=== PATIENT | male | born 1960 | race Caucasian/White ===

== ENCOUNTER 2021-04-29 16:17 | Inpatient (IN) | payer BC, SELFPAY ==
[~2021-04-29 16:17] MED LIST: Iopamidol-370 76% 500 ML 1 ML ONE
[2021-04-29] MEDS ORDERED: Magnesium 2 GM/50 ML BAG (IN WATER) ONE (16:53)
[2021-04-29] MEDS ORDERED: methylPREDNISolone Sod Succ/PF 125 MG/2 ML VIAL ONE (16:53)
[2021-04-29] MEDS ORDERED: Cefepime 2 GM VIAL ONE (17:05)
[2021-04-29 17:08] LABS: #Basophils 0.1 thou/uL (0.0-0.2); #Eosinphils 0.1 thou/uL (0.0-0.7); #Lymphocytes 2.7 thou/uL (1.20-3.40); #Monocytes 2.1 thou/uL (0.11-0.59); #Neutrophils 10.6 thou/uL (1.40-6.50); %Basophils 0.4 % (0.0-1.0); %Eosinophils 0.3 % (0.0-10.0); %Lymphocytes 17.4 % (21.0-51.0); %Monocytes 13.8 % (0.0-10.0); %Neutrophils 68.1 % (42.0-75.0); Hemoglobin 16.6 g/dL (14.0-18.0); Mean Corpuscular HGB CONC 33.4 g/dL (32.0-36.0); Mean Corpuscular Hemoglobin 30.8 pg (27.0-31.0); Mean Corpuscular Volume 92.4 fL (78.0-98.0); Mean Platelet Volume 7.8 fL (7.4-10.4); Platelet Count 263 thou/uL (130-400); RBC Distribution Width 13.2 % (11.5-14.5); Red Blood Cell (RBC) Count 5.38 mill/uL (4.70-6.10); White Blood Cell (WBC) Count 15.5 thou/uL (4.8-10.8)
[2021-04-29] MEDS ORDERED: Albuterol 200 PUFF (6.7GM INHALER) ONE (17:24)
[2021-04-29 17:34] LABS: ALT (SGPT) 27 U/L (8-55); AST (SGOT) 15 U/L (5-34); Albumin 4.4 g/dL (3.5-5.0); Alkaline Phosphatase 89 U/L (40-110); Anion Gap 18 mmol/L (10-20); BUN (Urea Nitrogen) 10 mg/dL (8.4-25.7); Bilirubin, Total 1.2 mg/dL (0.2-1.2); Calc. Creatinine Clearance 0 mL/min (70-130); Calcium 9.7 mg/dL (7.8-10.44); Carbon Dioxide 22 mmol/L (22-29); Chloride 95 mmol/L (98-107); Globulin 3.6 g/dL (2.4-3.5); Glucose 126 mg/dL (70-105); Lipase 20 U/L (8-78); Magnesium 1.7 mg/dL (1.6-2.6); Sodium 131 mmol/L (136-145)
[2021-04-29] MEDS ORDERED: VANCOMYCIN 2 GRAM/400 ML BAG 2 GM in Premix Bag 1 BAG IVPB SCH (17:45)
[2021-04-29] MEDS ORDERED: Aspirin Chewable 81 MG TAB ONE (18:04)
[2021-04-29 18:17] LABS: SARS-CoV-2 NAA Rapid Test Not Detected (NotDetected)
[2021-04-29 20:35] LABS: Troponin I 0.019 ng/mL (< 0.028)
[2021-04-29] MEDS ORDERED: Ondansetron ODT 4 MG TAB PO PRN (20:53)
[2021-04-29] MEDS ORDERED: Ondansetron PF 4 MG/2 ML Vial IVP PRN ×2 (20:53→21:30)
[2021-04-29 21:05] LABS: Bilirubin Negative (Negative); Blood, Urine Negative (Negative); Clarity Clear (Clear); Glucose, Urine (Dipstick) Normal (Negative); Ketone, Urine Negative (Negative); Leukocyte Negative Leu/uL (Negative); Nitrite Negative (Negative); Protein, Urine (Dipstick) Negative (Neg-Trace); Specific Gravity, Urine 1.023 (1.002-1.036); Urobilinogen Normal mg/dL (Less than 2); pH, Urine 5.5 (5.0-9.0)
[2021-04-29] MEDS ORDERED: Acetaminophen 325 MG TAB PO PRN (21:30)
[2021-04-29] MEDS ORDERED: Ondansetron ODT 4 MG TAB SL PRN (21:30)
[2021-04-29 21:43] VITALS: BMI 31.5
[2021-04-29 23:18] LABS: Troponin I 0.021 ng/mL (< 0.028)
[2021-04-30 04:52] LABS: #Lymphocytes 1.5 thou/uL (1.20-3.40); #Monocytes 0.3 thou/uL (0.11-0.59); #Neutrophils 9.7 thou/uL (1.40-6.50); %Eosinophils 0.1 % (0.0-10.0); %Lymphocytes 12.8 % (21.0-51.0); %Monocytes 2.2 % (0.0-10.0); %Neutrophils 84.9 % (42.0-75.0); Hemoglobin 15.9 g/dL (14.0-18.0); Mean Corpuscular HGB CONC 34.3 g/dL (32.0-36.0); Mean Corpuscular Hemoglobin 31.9 pg (27.0-31.0); Mean Platelet Volume 7.8 fL (7.4-10.4); Platelet Count 221 thou/uL (130-400); RBC Distribution Width 13.3 % (11.5-14.5); Red Blood Cell (RBC) Count 4.99 mill/uL (4.70-6.10); White Blood Cell (WBC) Count 11.4 thou/uL (4.8-10.8)
[2021-04-30 05:14] LABS: Anion Gap 13 mmol/L (10-20); BUN (Urea Nitrogen) 14 mg/dL (8.4-25.7); Calc. Creatinine Clearance 106 mL/min (70-130); Calcium 9.1 mg/dL (7.8-10.44); Carbon Dioxide 23 mmol/L (22-29); Chloride 99 mmol/L (98-107); Glucose 256 mg/dL (70-105); Potassium 4.1 mmol/L (3.5-5.1); Sodium 131 mmol/L (136-145)
[2021-04-30] MEDS ORDERED: methylPREDNISolone Sod Succ 40 MG VIAL IVP SCH (09:00)
[2021-04-30] MEDS ORDERED: Lisinopril/Hydrochlorothiazide 10 mg/12.5 mg Tablet PO SCH (14:00)
[2021-04-30] MEDS: predniSONE 20 MG TAB PO SCH (16:31)
[2021-04-30] MEDS ORDERED: Atorvastatin Calcium 10 MG TAB PO SCH (21:00)
[2021-04-30] MEDS ORDERED: Prevnar 13-Val Conj/PF 0.5 ML SYRINGE IM ONE (21:00)
[2021-04-30] MEDS ORDERED: Nicotine 21 MG PATCH TD SCH (21:30)
[2021-04-30] MEDS: Famotidine 20 MG TAB PO SCH (21:30)
[2021-04-30] MEDS: guaiFENesin ER 600 MG TAB PO SCH (21:30)
[2021-05-01] MEDS ORDERED: Lisinopril/Hydrochlorothiazide 10 mg/12.5 mg Tablet PO SCH (09:00)
[2021-05-01] MEDS: Famotidine 20 MG TAB PO SCH (09:26)
[2021-05-01] MEDS: predniSONE 20 MG TAB PO SCH (09:26)
[2021-05-01] MEDS: guaiFENesin ER 600 MG TAB PO SCH (09:26)
[2021-05-01 14:55] VITALS: BP 147/78; TEMP 97.4
== END 2021-05-01 15:05 | disposition home or self-care (01) | DRG 871 ==
LOC: ERS 16:17 → 2NO 18:21
PROVIDERS: ADMIT Internal Medicine; ATTEND Internal Medicine
DX: A41.9 Sepsis, unspecified organism (principal); J18.9 Pneumonia, unspecified organism; E87.2 Acidosis; E87.1 Hypo-osmolality and hyponatremia; Z20.822 Contact with and (suspected) exposure to COVID-19; F17.210 Nicotine dependence, cigarettes, uncomplicated; J43.9 Emphysema, unspecified; E66.9 Obesity, unspecified; I10 Essential (primary) hypertension; E87.5 Hyperkalemia; R73.9 Hyperglycemia, unspecified; T38.0X5A Adverse effect of glucocorticoids and synthetic analogues, initial encounter; Z88.0 Allergy status to penicillin; Z79.899 Other long term (current) drug therapy; Z68.30 Body mass index [BMI] 30.0-30.9, adult
CPT/HCPCS: 0240U; 36415; 71045; 71275; 80048; 80053; 81003; 83036; 83605; 83690; 83735; 83880; 84484; 85025; 87040; 87149; 90471; 90670; 93005; 94640; 94664; 94760; 96365; 96366; 96367; 96368; 96375; G0009; J0692; J1956; J2920; J2930; J3370; J3475; J7030; J7512; J7620; Q9967

== ENCOUNTER 2022-05-16 11:33 | Outpatient (CLI) | payer BC | END 2022-05-16 11:34 | disposition home or self-care (01) | LOC: BICRAD 11:33 | PROVIDERS: ATTEND Family Medicine Sports Medicine | DX: R06.02 Shortness of breath (principal) | CPT/HCPCS: 71046 ==

== ENCOUNTER 2023-12-27 11:26 | Inpatient (IN) | payer BC, SELFPAY ==
[~2023-12-27 11:26] MED LIST changes: -Iopamidol-370 76% 500 ML 1 ML ONE; +Iopamidol-370 76% 500 ML MDV (1 ML CHARGE) ONE
[2023-12-27 12:13] LABS: #Basophils 0.1 thou/uL (0.0-0.2); #Monocytes 1.3 thou/uL (0.11-0.59); #Neutrophils 18.5 thou/uL (1.40-6.50); %Basophils 0.3 % (0.0-1.0); %Eosinophils 0.2 % (0.0-10.0); %Lymphocytes 11.2 % (21.0-51.0); %Monocytes 5.8 % (0.0-10.0); %Neutrophils 81.9 % (42.0-75.0); Hematocrit 47.6 % (42.0-52.0); Hemoglobin 15.7 g/dL (14.0-18.0); Mean Corpuscular Hemoglobin 29.9 pg (27.0-31.0); Mean Corpuscular Volume 90.7 fl (78.0-98.0); Mean Platelet Volume 10.6 fL (7.4-10.4); Platelet Count 198 10x3/uL (130-400); RBC Distribution Width 14.6 % (11.5-14.5); Red Blood Cell (RBC) Count 5.25 mill/uL (4.70-6.10); White Blood Cell (WBC) Count 22.5 10x3/uL (4.8-10.8)
[2023-12-27] MEDS ORDERED: Aspirin Chewable 81 MG TAB ONE (12:17)
[2023-12-27] MEDS ORDERED: Magnesium 2 GM/50 ML BAG (IN WATER) ONE (12:57)
[2023-12-27 13:16] LABS: Critical Call Chem Troponin I NUR.JH15@1314
[2023-12-27 14:08] LABS: Influenza A by NAA Not Detected (NotDetected); Influenza B by NAA Not Detected (NotDetected); SARS-CoV-2 NAA Rapid Test Not Detected (NotDetected)
[2023-12-27] MEDS ORDERED: Furosemide 40 MG (4 mL) VIAL ONE (14:10)
[2023-12-27 14:35] LABS: ALT (SGPT) 594 U/L (8-55); AST (SGOT) 484 U/L (5-34); Albumin 4.4 g/dL (3.4-4.8); Alkaline Phosphatase 69 U/L (40-110); Anion Gap 18 mmol/L (10-20); BUN (Urea Nitrogen) 31 mg/dL (8.4-25.7); Bilirubin, Total 2.4 mg/dL (0.2-1.2); Calc. Creatinine Clearance 0 mL/min (70-130); Calcium 9.3 mg/dL (7.8-10.44); Carbon Dioxide 21 mmol/L (23-31); Chloride 97 mmol/L (98-107); Estimated GFR 45; Globulin 2.6 g/dL (2.4-3.5); Glucose 159 mg/dL (80-115); Magnesium 2.2 mg/dL (1.6-2.6); Potassium 4.6 mmol/L (3.5-5.1); Sodium 131 mmol/L (136-145)
[2023-12-27] MEDS ORDERED: Enoxaparin 100 MG (1 mL) SYRINGE ONE (15:15)
[2023-12-27 15:37] LABS: Critical Call Chem Troponin I RESULT DECREASING; Troponin I 0.457 ng/mL (< 0.028)
[2023-12-27 16:25] VITALS: BMI 34.2
[2023-12-27] MEDS ORDERED: Heparin 25,000 units/D5W 500 ML IVPB SCH (19:30)
[2023-12-27] MEDS ORDERED: Heparin 10,000 UNITS/ 10 ML VIAL SLOW IVP SCH (19:30)
[2023-12-27] MEDS ORDERED: Metoprolol Tartrate 25 MG TAB ONE (20:50)
[2023-12-27] MEDS ORDERED: Acetaminophen 325 MG TAB ONE (20:50)
[2023-12-27] MEDS: Acetaminophen 325 MG TAB PO PRN (20:55)
[2023-12-27] MEDS: Metoprolol Tartrate 25 MG TAB PO SCH (20:57)
[2023-12-27] MEDS ORDERED: Ondansetron ODT 4 MG TAB PO PRN (22:13)
[2023-12-27] MEDS ORDERED: Atorvastatin Calcium 40 MG TAB ONE (22:59)
[2023-12-27] MEDS: Atorvastatin Calcium 40 MG TAB PO SCH (23:08)
[2023-12-27 23:27] LABS: Amphetamine Detected (NotDetected); Barbiturates Screen Not Detected (NotDetected); Benzodiazepine Screen Not Detected (NotDetected); Cocaine Metabolite Screen Not Detected (NotDetected); Methadone Not Detected (NotDetected); Methamphetamine Detected (NotDetected); Opiate Screen Not Detected (NotDetected); Oxycodone Screen Not Detected (NotDetected); Phencyclidine (PCP) Not Detected (NotDetected); THC/Cannabinoid Screen Detected (NotDetected); Tricyclic Screen Not Detected (NotDetected)
[2023-12-28 00:01] LABS: Hemoglobin 13.9 g/dL (14.0-18.0); Platelet Count 214 10x3/uL (130-400)
[2023-12-28 00:18] LABS: ALT (SGPT) 569 U/L (8-55); AST (SGOT) 360 U/L (5-34); Albumin 3.9 g/dL (3.4-4.8); Alkaline Phosphatase 58 U/L (40-110); Anion Gap 14 mmol/L (10-20); BUN (Urea Nitrogen) 26 mg/dL (8.4-25.7); Bilirubin, Total 1.7 mg/dL (0.2-1.2); Calc. Creatinine Clearance 104 mL/min (70-130); Calcium 8.7 mg/dL (7.8-10.44); Carbon Dioxide 25 mmol/L (23-31); Chloride 96 mmol/L (98-107); Estimated GFR 76; Globulin 2.6 g/dL (2.4-3.5); Glucose 118 mg/dL (80-115); Potassium 4.1 mmol/L (3.5-5.1); Protein, Total 6.5 g/dL (5.8-8.1); Sodium 131 mmol/L (136-145)
[2023-12-28 00:38] LABS: HBCM Index 0.07 S/CO (0-0.79); Hep A IgM AB Non-Reactive (NonReactive); Hep A IgM S/CO 0.34 S/CO (0-0.79); Hep B Surf Ag Non-Reactive S/CO (NonReactive); Hep C IgG Ab Non-Reactive S/CO (NonReactive); Hep C Index 0.08 S/CO (0-0.79); Hepatitis B Core IgM Abs Non-Reactive S/CO (NonReactive)
[2023-12-28 00:39] LABS: HIV (1/2) Antibody/Antigen Non-Reactive (NonReactive); HIV 1/2 INDEX 0.22 S/CO (<1.00)
[2023-12-28] MEDS: Lactated Ringer's 1,000 ML IV SCH (01:23)
[2023-12-28 02:00] LABS: Critical Call Chem Troponin I NUR.SH13@0159; Troponin I 0.517 ng/mL (< 0.028)
[2023-12-28] MEDS ORDERED: Heparin 25,000 units/D5W 500 ML ONE (02:12)
[2023-12-28] MEDS: Heparin 10,000 UNITS/ 10 ML VIAL SLOW IVP SCH (02:37)
[2023-12-28] MEDS: Heparin 25,000 units/D5W 500 ML IVPB SCH (02:37)
[2023-12-28] MEDS ORDERED: Nitroglycerin 0.4 MG TAB (25 Tab Bottle) SL PRN (02:40)
[2023-12-28 03:59] LABS: #Eosinphils 0.1 thou/uL (0.0-0.7); #Neutrophils 10.1 thou/uL (1.40-6.50); %Basophils 0.3 % (0.0-1.0); %Eosinophils 0.3 % (0.0-10.0); %Monocytes 13.5 % (0.0-10.0); %Neutrophils 68.6 % (42.0-75.0); Hematocrit 47.3 % (42.0-52.0); Hemoglobin 15.6 g/dL (14.0-18.0); Mean Corpuscular Hemoglobin 29.6 pg (27.0-31.0); Mean Corpuscular Volume 89.8 fl (78.0-98.0); Mean Platelet Volume 10.4 fL (7.4-10.4); Platelet Count 208 10x3/uL (130-400); RBC Distribution Width 14.5 % (11.5-14.5); Red Blood Cell (RBC) Count 5.27 mill/uL (4.70-6.10); White Blood Cell (WBC) Count 14.7 10x3/uL (4.8-10.8)
[2023-12-28 04:09] LABS: Hemoglobin A1c 6.2 % (4.0-6.0)
[2023-12-28] MEDS ORDERED: Acetaminophen 500 MG TAB ONE (04:12)
[2023-12-28] MEDS ORDERED: Famotidine 20 MG TAB ONE (04:12)
[2023-12-28] MEDS: Acetaminophen 500 MG TAB PO SCH (04:16)
[2023-12-28] MEDS: Famotidine 20 MG TAB PO SCH (04:17)
[2023-12-28 04:19] LABS: ALT (SGPT) 660 U/L (8-55); AST (SGOT) 416 U/L (5-34); Albumin 4.2 g/dL (3.4-4.8); Alkaline Phosphatase 64 U/L (40-110); Anion Gap 20 mmol/L (10-20); BUN (Urea Nitrogen) 24 mg/dL (8.4-25.7); Bilirubin, Total 2.1 mg/dL (0.2-1.2); Calc. Creatinine Clearance 115 mL/min (70-130); Calcium 8.8 mg/dL (7.8-10.44); Carbon Dioxide 22 mmol/L (23-31); Cardiac Risk 3.2 (Less than 4.5); Chloride 95 mmol/L (98-107); Cholesterol 133 mg/dl (< 200 Desired); Estimated GFR 86; Glucose 100 mg/dL (80-115); HDL Cholesterol 41 mg/dL (>60 Neg Risk); LDL Cholesterol, Calculated 62 mg/dL; Magnesium 2.3 mg/dL (1.6-2.6); Potassium 4.8 mmol/L (3.5-5.1); Protein, Total 7.2 g/dL (5.8-8.1); Sodium 132 mmol/L (136-145); Triglycerides 148 mg/dL (Less than 150)
[2023-12-28 06:16] LABS: Critical Call Chem Troponin I RESULT DECREASING; Troponin I 0.515 ng/mL (< 0.028)
[2023-12-28] MEDS ORDERED: Lactated Ringer's 1,000 ML IV SCH (07:00)
[2023-12-28] MEDS ORDERED: Lisinopril 10 MG TAB ONE (08:16)
[2023-12-28] MEDS ORDERED: Clopidogrel Bisulfate 75 MG TAB ONE (08:16)
[2023-12-28] MEDS ORDERED: Aspirin Chewable 81 MG TAB ONE (08:17)
[2023-12-28] MEDS ORDERED: Metoprolol Tartrate 25 MG TAB ONE (08:33)
[2023-12-28] MEDS ORDERED: Hydrochlorothiazide 25 MG TAB PO SCH (09:00)
[2023-12-28] MEDS ORDERED: Lisinopril 10 MG TAB PO SCH (09:00)
[2023-12-28] MEDS ORDERED: Atorvastatin Calcium 10 MG TAB PO SCH (09:00)
[2023-12-28] MEDS: Hydrochlorothiazide 25 MG TAB PO SCH (10:40)
[2023-12-28] MEDS: Lisinopril 10 MG TAB PO SCH (10:41)
[2023-12-28] MEDS: Clopidogrel Bisulfate 75 MG TAB PO SCH (10:41)
[2023-12-28] MEDS: Aspirin 81 mg Enteric Coated Tablet PO SCH (10:41)
[2023-12-28] MEDS: Docusate 100 MG CAP PO SCH (10:41)
[2023-12-28 11:54] LABS: Syphilis Antibody Nonreactive (Nonreactive); Syphilis Antibody Index 0.04 S/CO (<1.00 Non-Reactive)
[2023-12-28] MEDS ORDERED: Ipratropium/Albuterol 3 ML NEB NEB PRN (13:56)
[2023-12-28] MEDS: Enoxaparin 120 MG/0.8 ML SYRINGE SC SCH (15:55)
[2023-12-28] MEDS: Atorvastatin Calcium 40 MG TAB PO SCH (20:41)
[2023-12-28] MEDS ORDERED: Enoxaparin 120 MG/0.8 ML SYRINGE SC SCH (21:00)
[2023-12-28] MEDS: Sodium Chloride 0.9% 500 ML IV SCH (22:05)
[2023-12-29] MEDS: Guaifenesin DM 100-10/5 ML UDCUP PO PRN (02:41)
[2023-12-29] MEDS: Enoxaparin 120 MG/0.8 ML SYRINGE SC SCH (04:04)
[2023-12-29 06:06] LABS: #Eosinphils 0.1 thou/uL (0.0-0.7); #Monocytes 1.1 thou/uL (0.11-0.59); #Neutrophils 5.1 thou/uL (1.40-6.50); %Basophils 0.2 % (0.0-1.0); %Eosinophils 1.5 % (0.0-10.0); %Lymphocytes 33.2 % (21.0-51.0); %Monocytes 11.4 % (0.0-10.0); %Neutrophils 53.4 % (42.0-75.0); Hematocrit 43.3 % (42.0-52.0); Hemoglobin 14.2 g/dL (14.0-18.0); Mean Corpuscular HGB CONC 32.8 g/dL (32.0-36.0); Mean Corpuscular Hemoglobin 30.2 pg (27.0-31.0); Mean Corpuscular Volume 92.1 fl (78.0-98.0); Mean Platelet Volume 10.8 fL (7.4-10.4); Platelet Count 210 10x3/uL (130-400); RBC Distribution Width 14.2 % (11.5-14.5); White Blood Cell (WBC) Count 9.5 10x3/uL (4.8-10.8)
[2023-12-29 06:38] LABS: ALT (SGPT) 445 U/L (8-55); AST (SGOT) 184 U/L (5-34); Albumin 3.7 g/dL (3.4-4.8); Alkaline Phosphatase 72 U/L (40-110); Anion Gap 13 mmol/L (10-20); BUN (Urea Nitrogen) 20 mg/dL (8.4-25.7); Bilirubin, Total 1.2 mg/dL (0.2-1.2); Calc. Creatinine Clearance 133 mL/min (70-130); Carbon Dioxide 27 mmol/L (23-31); Chloride 98 mmol/L (98-107); Estimated GFR 98; Globulin 2.6 g/dL (2.4-3.5); Glucose 112 mg/dL (80-115); Potassium 3.7 mmol/L (3.5-5.1); Protein, Total 6.3 g/dL (5.8-8.1); Sodium 134 mmol/L (136-145)
[2023-12-29 07:14] LABS: Critical Call Chem Troponin I REJAB.HL@0713; Troponin I 0.397 ng/mL (< 0.028)
[2023-12-29] MEDS ORDERED: Hydrochlorothiazide 25 MG TAB PO SCH (09:00)
[2023-12-29] MEDS: Magnesium Sulfate 3 GM in Sodium Chloride 0.9% 100 ML IVPB SCH (09:06)
[2023-12-29] MEDS: Potassium Chloride 20 MEQ TAB PO SCH (09:07)
[2023-12-29] MEDS: FLU VACC QS2023-24(6MOS UP)/PF 60 MCG/0.5 ML SYRINGE IM ONE (09:13)
[2023-12-29] MEDS ORDERED: Enoxaparin 100 MG (1 mL) SYRINGE SC SCH ×2 (16:00→20:00)
[2023-12-29] MEDS: Apixaban 5 MG TAB PO SCH ×3 (16:38→16:50)
[2023-12-29] MEDS ORDERED: Apixaban 5 MG TAB PO SCH (21:00)
[2023-12-30 04:59] LABS: #Eosinphils 0.3 thou/uL (0.0-0.7); #Neutrophils 5.2 thou/uL (1.40-6.50); %Basophils 0.3 % (0.0-1.0); %Eosinophils 3.2 % (0.0-10.0); %Lymphocytes 31.6 % (21.0-51.0); %Monocytes 10.2 % (0.0-10.0); %Neutrophils 54.4 % (42.0-75.0); Hematocrit 43.5 % (42.0-52.0); Hemoglobin 14.3 g/dL (14.0-18.0); Mean Corpuscular HGB CONC 32.9 g/dL (32.0-36.0); Mean Corpuscular Hemoglobin 29.6 pg (27.0-31.0); Mean Corpuscular Volume 90.1 fl (78.0-98.0); Mean Platelet Volume 10.5 fL (7.4-10.4); Platelet Count 251 10x3/uL (130-400); RBC Distribution Width 13.9 % (11.5-14.5); Red Blood Cell (RBC) Count 4.83 mill/uL (4.70-6.10); White Blood Cell (WBC) Count 9.6 10x3/uL (4.8-10.8)
[2023-12-30 05:28] LABS: ALT (SGPT) 311 U/L (8-55); AST (SGOT) 80 U/L (5-34); Albumin 3.5 g/dL (3.4-4.8); Alkaline Phosphatase 76 U/L (40-110); Anion Gap 16 mmol/L (10-20); BUN (Urea Nitrogen) 16 mg/dL (8.4-25.7); Bilirubin, Total 0.6 mg/dL (0.2-1.2); Calc. Creatinine Clearance 141 mL/min (70-130); Calcium 8.8 mg/dL (7.8-10.44); Carbon Dioxide 23 mmol/L (23-31); Chloride 102 mmol/L (98-107); Estimated GFR 100; Globulin 2.9 g/dL (2.4-3.5); Glucose 120 mg/dL (80-115); Magnesium 3.7 mg/dL (1.6-2.6); Potassium 4.3 mmol/L (3.5-5.1); Protein, Total 6.4 g/dL (5.8-8.1); Sodium 137 mmol/L (136-145)
[2023-12-30] MEDS: Apixaban 5 MG TAB PO SCH (09:21)
[2023-12-30 12:37] VITALS: BP 134/66; TEMP 98.4
[2024-01-03] MEDS ORDERED: Apixaban 5 MG TAB PO SCH ×2 (16:00→21:00)
== END 2023-12-30 15:44 | disposition home or self-care (01) | DRG 917 ==
LOC: ERS 11:26 → ERHOLD 15:27 → IMCU/EMU 12-28 12:00 → 2NO 12-29 20:23
PROVIDERS: ADMIT Student in an Organized Health Care Education/Training Program; ATTEND Student in an Organized Health Care Education/Training Program
PROC: 5A2204Z Restoration of Cardiac Rhythm, Single (ICD-10-PCS; principal; 2023-12-27)
DX: T43.651A Poisoning by methamphetamines accidental (unintentional), initial encounter (principal); I21.4 Non-ST elevation (NSTEMI) myocardial infarction; I26.99 Other pulmonary embolism without acute cor pulmonale; I47.20 Ventricular tachycardia, unspecified; N17.9 Acute kidney failure, unspecified; E78.5 Hyperlipidemia, unspecified; I10 Essential (primary) hypertension; J44.9 Chronic obstructive pulmonary disease, unspecified; F15.10 Other stimulant abuse, uncomplicated; F17.210 Nicotine dependence, cigarettes, uncomplicated; Z71.6 Tobacco abuse counseling; Z79.899 Other long term (current) drug therapy; Z86.19 Personal history of other infectious and parasitic diseases
CPT/HCPCS: 36415; 71045; 71275; 76705; 80053; 80061; 80074; 80306; 83036; 83690; 83735; 83880; 84443; 84484; 85025; 85730; 86780; 87389; 93005; 93010; 93306; 93970; 96365; 96375; J1644; J1650; J1940; J3475; J3490; J7030; J7120; Q9967

== ENCOUNTER 2024-05-02 13:02 | Inpatient (IN) | payer SELFPAY ==
[2024-05-02] MEDS ORDERED: methylPREDNISolone Sod Succ/PF 125 MG/2 ML VIAL ONE (13:18)
[2024-05-02 13:34] LABS: #Basophils 0.06 10x3/uL (0.0-0.2); %Basophils 0.5 % (0.0-1.0); %Eosinophils 2.5 % (0.0-10.0); %Lymphocytes 36.2 % (21.0-51.0); %Neutrophils 49.6 % (42.0-75.0); Hematocrit 45.7 % (42.0-52.0); Hemoglobin 14.8 g/dL (14.0-18.0); Mean Corpuscular HGB CONC 32.4 g/dL (32.0-36.0); Mean Corpuscular Volume 89.4 fL (78.0-98.0); Mean Platelet Volume 9.9 fL (7.4-10.4); Platelet Count 208 10x3/uL (130-400); RBC Distribution Width 15.9 % (11.5-14.5); Red Blood Cell (RBC) Count 5.11 mill/uL (4.70-6.10)
[2024-05-02] MEDS ORDERED: Magnesium 2 GM/50 ML BAG (IN WATER) ONE (13:34)
[2024-05-02 13:49] LABS: ALT (SGPT) 16 U/L (8-55); AST (SGOT) 20 U/L (5-34); Albumin 3.9 g/dL (3.4-4.8); Alkaline Phosphatase 91 U/L (40-110); Anion Gap 15 mmol/L (10-20); BUN (Urea Nitrogen) 12 mg/dL (8.4-25.7); Calc. Creatinine Clearance 0 mL/min (70-130); Calcium 9.3 mg/dL (7.8-10.44); Carbon Dioxide 26 mmol/L (23-31); Chloride 102 mmol/L (98-107); Estimated GFR 81; Globulin 3.1 g/dL (2.4-3.5); Glucose 124 mg/dL (80-115); Potassium 4.9 mmol/L (3.5-5.1); Sodium 138 mmol/L (136-145)
[2024-05-02] MEDS ORDERED: Ipratropium/Albuterol 3 ML NEB ONE (13:49)
[2024-05-02 13:58] LABS: Troponin I 0.021 ng/mL (< 0.028)
[2024-05-02] MEDS ORDERED: Ipratropium/Albuterol 3 ML NEB NEB PRN (16:25)
[2024-05-02] MEDS: Nicotine 14 MG PATCH TD SCH (17:58)
[2024-05-02] MEDS: Acetaminophen 325 MG TAB PO SCH (17:58)
[2024-05-02] MEDS: methylPREDNISolone Sod Succ 40 MG VIAL IVP SCH (17:59)
[2024-05-02 18:12] VITALS: BMI 31.5
[2024-05-02] MEDS: Ipratropium/Albuterol 3 ML NEB NEB SCH (19:19)
[2024-05-02 19:45] LABS: Troponin I 0.012 ng/mL (< 0.028)
[2024-05-02] MEDS: Atorvastatin Calcium 20 MG TAB PO SCH (20:11)
[2024-05-02] MEDS: Famotidine 20 MG TAB PO SCH (20:12)
[2024-05-02 22:55] LABS: Troponin I Less than 0.010 ng/mL (< 0.028)
[2024-05-03 03:51] LABS: #Basophils Less than 0.03 10x3/uL (0.0-0.2); #Eosinphils Less than 0.03 10x3/uL (0.0-0.7); %Basophils 0.2 % (0.0-1.0); %Lymphocytes 10.1 % (21.0-51.0); %Monocytes 1.4 % (0.0-10.0); %Neutrophils 87.6 % (42.0-75.0); Hematocrit 45.6 % (42.0-52.0); Hemoglobin 14.5 g/dL (14.0-18.0); Mean Corpuscular HGB CONC 31.8 g/dL (32.0-36.0); Mean Corpuscular Hemoglobin 29.7 pg (27.0-31.0); Mean Corpuscular Volume 93.4 fL (78.0-98.0); Mean Platelet Volume 10.3 fL (7.4-10.4); Platelet Count 201 10x3/uL (130-400); RBC Distribution Width 15.9 % (11.5-14.5); Red Blood Cell (RBC) Count 4.88 mill/uL (4.70-6.10)
[2024-05-03 04:07] LABS: Anion Gap 16 mmol/L (10-20); BUN (Urea Nitrogen) 13 mg/dL (8.4-25.7); Calc. Creatinine Clearance 97 mL/min (70-130); Carbon Dioxide 23 mmol/L (23-31); Chloride 101 mmol/L (98-107); Estimated GFR 74; Glucose 264 mg/dL (80-115); Potassium 4.7 mmol/L (3.5-5.1); Sodium 135 mmol/L (136-145)
[2024-05-03] MEDS: Aspirin 81 mg Enteric Coated Tablet PO SCH (08:07)
[2024-05-03] MEDS: Losartan 25 MG TAB PO SCH (08:08)
[2024-05-03] MEDS: Furosemide 40 MG TAB PO SCH (08:08)
[2024-05-03] MEDS: Enoxaparin 40 MG (0.4 mL) SYRINGE SC SCH (08:08)
[2024-05-03 08:41] LABS: Amphetamine Not Detected (NotDetected); Barbiturates Screen Not Detected (NotDetected); Benzodiazepine Screen Not Detected (NotDetected); Cocaine Metabolite Screen Not Detected (NotDetected); Methadone Not Detected (NotDetected); Methamphetamine Not Detected (NotDetected); Opiate Screen Not Detected (NotDetected); Oxycodone Screen Not Detected (NotDetected); Phencyclidine (PCP) Not Detected (NotDetected); THC/Cannabinoid Screen Detected (NotDetected); Tricyclic Screen Not Detected (NotDetected)
[2024-05-03] MEDS ORDERED: Dextrose 5% in Water 1,000 ML IV PRN (15:46)
[2024-05-03] MEDS ORDERED: Glucagon 1 MG/ML KIT IM PRN (15:46)
[2024-05-03] MEDS ORDERED: Dextrose 50% Abboject 50 ML SYRINGE SLOW IVP PRN (15:46)
[2024-05-03] MEDS: Insulin Lispro 100 UNIT/ML 10 ML VIAL SC PRN (17:30)
[2024-05-03] MEDS: Apixaban 5 MG TAB PO SCH (20:27)
[2024-05-03] MEDS: Carvedilol 6.25 MG TAB PO SCH (20:27)
[2024-05-04 04:27] LABS: Hemoglobin A1c 7.2 % (4.0-6.0)
[2024-05-04 04:43] LABS: #Basophils Less than 0.03 10x3/uL (0.0-0.2); #Eosinphils Less than 0.03 10x3/uL (0.0-0.7); %Basophils 0.1 % (0.0-1.0); %Lymphocytes 6.3 % (21.0-51.0); %Monocytes 4.5 % (0.0-10.0); %Neutrophils 88.3 % (42.0-75.0); Hematocrit 44.1 % (42.0-52.0); Mean Corpuscular HGB CONC 31.7 g/dL (32.0-36.0); Mean Corpuscular Hemoglobin 29.8 pg (27.0-31.0); Mean Corpuscular Volume 93.8 fL (78.0-98.0); Mean Platelet Volume 10.2 fL (7.4-10.4); Platelet Count 201 10x3/uL (130-400); RBC Distribution Width 16.3 % (11.5-14.5)
[2024-05-04 04:45] LABS: Anion Gap 13 mmol/L (10-20); BUN (Urea Nitrogen) 17 mg/dL (8.4-25.7); Calc. Creatinine Clearance 98 mL/min (70-130); Calcium 9.6 mg/dL (7.8-10.44); Carbon Dioxide 27 mmol/L (23-31); Chloride 98 mmol/L (98-107); Estimated GFR 75; Glucose 283 mg/dL (80-115); Potassium 5.5 mmol/L (3.5-5.1); Sodium 132 mmol/L (136-145)
[2024-05-04] MEDS: Pantoprazole DR 40 MG TAB PO SCH (08:36)
[2024-05-04] MEDS: Amiodarone 200 MG TAB PO SCH (08:36)
[2024-05-04 14:51] LABS: Potassium 5.3 mmol/L (3.5-5.1)
[2024-05-04] MEDS: metFORMIN 500 MG TAB PO SCH (17:10)
[2024-05-04] MEDS: methylPREDNISolone Sod Succ 40 MG VIAL IVP SCH (21:25)
[2024-05-05 05:25] LABS: Anion Gap 11 mmol/L (10-20); BUN (Urea Nitrogen) 25 mg/dL (8.4-25.7); Calc. Creatinine Clearance 105 mL/min (70-130); Carbon Dioxide 26 mmol/L (23-31); Chloride 97 mmol/L (98-107); Estimated GFR 82; Glucose 325 mg/dL (80-115); Potassium 5.1 mmol/L (3.5-5.1); Sodium 129 mmol/L (136-145)
[2024-05-05 16:08] VITALS: BP 156/67; TEMP 97.8
== END 2024-05-05 16:19 | disposition home or self-care (01) | DRG 191 ==
LOC: ERS 13:02 → 2SW 15:39 → OBSVTOIN 05-03 15:38
PROVIDERS: ADMIT Internal Medicine; ATTEND Internal Medicine
DX: J44.1 Chronic obstructive pulmonary disease with (acute) exacerbation (principal); I48.19 Other persistent atrial fibrillation; I50.22 Chronic systolic (congestive) heart failure; R73.9 Hyperglycemia, unspecified; I25.10 Atherosclerotic heart disease of native coronary artery without angina pectoris; F15.10 Other stimulant abuse, uncomplicated; F17.210 Nicotine dependence, cigarettes, uncomplicated; I11.0 Hypertensive heart disease with heart failure; E78.5 Hyperlipidemia, unspecified; Z79.899 Other long term (current) drug therapy; Z88.0 Allergy status to penicillin; Z79.01 Long term (current) use of anticoagulants; Z79.82 Long term (current) use of aspirin; Z79.52 Long term (current) use of systemic steroids; Z86.711 Personal history of pulmonary embolism; Z95.5 Presence of coronary angioplasty implant and graft; Z71.6 Tobacco abuse counseling; Z71.51 Drug abuse counseling and surveillance of drug abuser; I25.2 Old myocardial infarction
CPT/HCPCS: 36415; 36416; 71045; 80048; 80053; 80306; 83036; 83880; 84484; 85025; 93005; 94640; 96365; 96375; J1650; J1815; J2920; J2930; J3475; J7620

== ENCOUNTER 2024-08-25 09:09 | Inpatient (IN) | payer BC, SELFPAY ==
[2024-08-25 09:57] LABS: %Basophils 0.6 % (0.0-1.0); %Eosinophils 0.5 % (0.0-10.0); %Lymphocytes 23.8 % (21.0-51.0); %Monocytes 11.1 % (0.0-10.0); %Neutrophils 63.5 % (42.0-75.0); Hematocrit 43.6 % (42.0-52.0); Hemoglobin 13.9 g/dL (14.0-18.0); Mean Corpuscular HGB CONC 31.9 g/dL (32.0-36.0); Mean Corpuscular Volume 94.2 fL (78.0-98.0); Mean Platelet Volume 9.1 fL (7.4-10.4); Platelet Count 282 10x3/uL (130-400); RBC Distribution Width 15.7 % (11.5-14.5); Red Blood Cell (RBC) Count 4.63 mill/uL (4.70-6.10)
[2024-08-25] MEDS ORDERED: Ipratropium/Albuterol 3 ML NEB ONE (10:08)
[2024-08-25 10:30] LABS: Acetaminophen 18 mcg/mL (Less than 10); Alcohol Less than 10.0 mg/dL (Less than 10); Salicylate Less than 8.0 mg/dL (Less than 8.0)
[2024-08-25 11:16] LABS: ALT (SGPT) 17 U/L (8-55); AST (SGOT) 16 U/L (5-34); Albumin 3.8 g/dL (3.4-4.8); Alkaline Phosphatase 70 U/L (40-110); Anion Gap 13 mmol/L (10-20); BUN (Urea Nitrogen) 10 mg/dL (8.4-25.7); Bilirubin, Total 1.4 mg/dL (0.2-1.2); Calc. Creatinine Clearance 0 mL/min (70-130); Calcium 9.4 mg/dL (7.8-10.44); Carbon Dioxide 27 mmol/L (23-31); Chloride 101 mmol/L (98-107); Estimated GFR 98; Globulin 3.3 g/dL (2.4-3.5); Glucose 133 mg/dL (80-115); Lipase 13 U/L (8-78); Protein, Total 7.1 g/dL (5.8-8.1); Sodium 137 mmol/L (136-145)
[2024-08-25 11:21] LABS: Amphetamine Not Detected (NotDetected); Barbiturates Screen Not Detected (NotDetected); Benzodiazepine Screen Not Detected (NotDetected); Cocaine Metabolite Screen Not Detected (NotDetected); Methadone Not Detected (NotDetected); Methamphetamine Not Detected (NotDetected); Opiate Screen Not Detected (NotDetected); Oxycodone Screen Not Detected (NotDetected); Phencyclidine (PCP) Not Detected (NotDetected); THC/Cannabinoid Screen Not Detected (NotDetected); Tricyclic Screen Not Detected (NotDetected)
[2024-08-25] MEDS ORDERED: Furosemide 40 MG (4 mL) VIAL ONE (11:26)
[2024-08-25] MEDS ORDERED: Azithromycin 500 MG VIAL ONE (12:09)
[2024-08-25] MEDS ORDERED: Acetaminophen 325 MG TAB PO PRN (12:58)
[2024-08-25] MEDS ORDERED: Dextrose 50% Abboject 50 ML SYRINGE SLOW IVP PRN (13:00)
[2024-08-25] MEDS ORDERED: Ipratropium Bromide 2.5 ml Neb NEB PRN (13:00)
[2024-08-25] MEDS ORDERED: Dextrose 5% in Water 1,000 ML IV PRN (13:00)
[2024-08-25] MEDS ORDERED: Senokot S 8.6-50 MG TAB PO PRN (13:00)
[2024-08-25] MEDS ORDERED: Acetaminophen 650 MG Suppository PR PRN (13:00)
[2024-08-25] MEDS ORDERED: Nitroglycerin 0.4 MG TAB (25 Tab Bottle) SL PRN (13:00)
[2024-08-25] MEDS ORDERED: Glucagon 1 MG/ML KIT IM PRN (13:00)
[2024-08-25] MEDS ORDERED: Calcium Carbonate 500 MG ChewTAB PO PRN (13:00)
[2024-08-25] MEDS ORDERED: Furosemide 20 MG (2 mL) VIAL SLOW IVP SCH (14:00)
[2024-08-25 14:11] VITALS: BMI 35.7
[2024-08-25] MEDS: Magnesium 2 GM/50 ML(in water) 2 GM in Premix 1 BAG IVPB SCH (14:37)
[2024-08-25] MEDS: Ipratropium/Albuterol 3 ML NEB NEB SCH (15:18)
[2024-08-25 16:26] LABS: Troponin I 0.046 ng/mL (< 0.028)
[2024-08-25] MEDS: Acetaminophen 325 MG TAB PO PRN (19:06)
[2024-08-25] MEDS: Famotidine 20 MG TAB PO SCH (20:41)
[2024-08-25] MEDS: methylPREDNISolone Sod Succ 40 MG VIAL IVP SCH (20:41)
[2024-08-25] MEDS: Atorvastatin Calcium 20 MG TAB PO SCH (20:41)
[2024-08-25] MEDS: Apixaban 5 MG TAB PO SCH (20:41)
[2024-08-25] MEDS: Nicotine 14 MG PATCH TD PRN (20:46)
[2024-08-25] MEDS ORDERED: Carvedilol 6.25 MG TAB PO SCH (21:00)
[2024-08-26 04:58] LABS: #Basophils Less than 0.03 10x3/uL (0.0-0.2); #Eosinophils Less than 0.03 10x3/uL (0.0-0.7); %Basophils 0.2 % (0.0-1.0); %Lymphocytes 8.3 % (21.0-51.0); %Monocytes 2.1 % (0.0-10.0); %Neutrophils 88.8 % (42.0-75.0); Hematocrit 43.2 % (42.0-52.0); Hemoglobin 13.8 g/dL (14.0-18.0); Mean Corpuscular HGB CONC 31.9 g/dL (32.0-36.0); Mean Corpuscular Hemoglobin 30.4 pg (27.0-31.0); Mean Corpuscular Volume 95.2 fL (78.0-98.0); Mean Platelet Volume 9.4 fL (7.4-10.4); Platelet Count 286 10x3/uL (130-400); RBC Distribution Width 15.7 % (11.5-14.5); Red Blood Cell (RBC) Count 4.54 mill/uL (4.70-6.10)
[2024-08-26 05:17] LABS: ALT (SGPT) 17 U/L (8-55); AST (SGOT) 16 U/L (5-34); Albumin 3.6 g/dL (3.4-4.8); Alkaline Phosphatase 68 U/L (40-110); Anion Gap 17 mmol/L (10-20); BUN (Urea Nitrogen) 14 mg/dL (8.4-25.7); Bilirubin, Total 1.4 mg/dL (0.2-1.2); Calc. Creatinine Clearance 131 mL/min (70-130); Calcium 9.1 mg/dL (7.8-10.44); Carbon Dioxide 24 mmol/L (23-31); Chloride 99 mmol/L (98-107); Estimated GFR 91; Globulin 3.4 g/dL (2.4-3.5); Glucose 288 mg/dL (80-115); Magnesium 2.4 mg/dL (1.6-2.6); Potassium 5.7 mmol/L (3.5-5.1); Sodium 134 mmol/L (136-145)
[2024-08-26] MEDS: Furosemide 20 MG (2 mL) VIAL SLOW IVP SCH (05:43)
[2024-08-26] MEDS: Mometasone 100 MCG/Formoterol 5 MCG 120 PUFF INHALER INH SCH (07:04)
[2024-08-26] MEDS: Aspirin 81 mg Enteric Coated Tablet PO SCH (08:24)
[2024-08-26] MEDS ORDERED: Albuterol 200 PUFF (6.7GM INHALER) INH PRN (09:33)
[2024-08-26] MEDS: Empagliflozin 25 MG TAB PO SCH (10:57)
[2024-08-26] MEDS ORDERED: guaiFENesin/Codeine 200 mg/20 mg 10 ml Cup PO PRN (11:58)
[2024-08-26] MEDS: Azithromycin 500 MG in Sodium Chloride 0.9% 250 ML 250 ML IVPB SCH (13:14)
[2024-08-26] MEDS: Furosemide 40 MG (4 mL) VIAL SLOW IVP SCH (13:14)
[2024-08-26] MEDS: methylPREDNISolone Sod Succ 40 MG VIAL IVP SCH (13:14)
[2024-08-26] MEDS: Nicotine 14 MG PATCH TD SCH (14:46)
[2024-08-26] MEDS: Benzonatate 100 MG CAP PO SCH (14:46)
[2024-08-26] MEDS: metFORMIN 500 MG TAB PO SCH (16:18)
[2024-08-26] MEDS: Mometasone 200 MCG/Formoterol 5 MCG 120 PUFF INHALER INH SCH (18:48)
[2024-08-26] MEDS: guaiFENesin ER 600 MG TAB PO SCH (20:26)
[2024-08-26] MEDS: Insulin Lispro 100 UNIT/ML 10 ML VIAL SC PRN (21:24)
[2024-08-27 04:05] LABS: #Basophils Less than 0.03 10x3/uL (0.0-0.2); #Eosinophils Less than 0.03 10x3/uL (0.0-0.7); %Basophils 0.1 % (0.0-1.0); %Lymphocytes 7.5 % (21.0-51.0); %Monocytes 3.9 % (0.0-10.0); %Neutrophils 87.8 % (42.0-75.0); Hematocrit 43.5 % (42.0-52.0); Hemoglobin 13.5 g/dL (14.0-18.0); Mean Corpuscular Hemoglobin 29.5 pg (27.0-31.0); Mean Platelet Volume 9.3 fL (7.4-10.4); Platelet Count 293 10x3/uL (130-400); RBC Distribution Width 15.8 % (11.5-14.5); Red Blood Cell (RBC) Count 4.58 mill/uL (4.70-6.10)
[2024-08-27 04:40] LABS: Anion Gap 15 mmol/L (10-20); BUN (Urea Nitrogen) 22 mg/dL (8.4-25.7); Calc. Creatinine Clearance 105 mL/min (70-130); Calcium 9.3 mg/dL (7.8-10.44); Carbon Dioxide 26 mmol/L (23-31); Chloride 98 mmol/L (98-107); Estimated GFR 68; Glucose 267 mg/dL (80-115); Potassium 4.8 mmol/L (3.5-5.1); Sodium 134 mmol/L (136-145)
[2024-08-27] MEDS: Insulin Lispro 100 UNIT/ML 10 ML VIAL SC PRN (06:50)
[2024-08-27] MEDS: Losartan 25 MG TAB PO SCH (08:55)
[2024-08-27] MEDS: Empagliflozin 25 MG TAB PO SCH (08:55)
[2024-08-27] MEDS: Insulin Glargine 30 UNITS/0.3 ML VIAL SC SCH ×2 (09:05→20:28)
[2024-08-28 04:46] LABS: #Basophils Less than 0.03 10x3/uL (0.0-0.2); #Eosinophils Less than 0.03 10x3/uL (0.0-0.7); %Basophils 0.1 % (0.0-1.0); %Lymphocytes 8.3 % (21.0-51.0); %Monocytes 6.1 % (0.0-10.0); %Neutrophils 84.9 % (42.0-75.0); Hematocrit 42.8 % (42.0-52.0); Hemoglobin 13.3 g/dL (14.0-18.0); Mean Corpuscular HGB CONC 31.1 g/dL (32.0-36.0); Mean Corpuscular Hemoglobin 29.9 pg (27.0-31.0); Mean Corpuscular Volume 96.2 fL (78.0-98.0); Mean Platelet Volume 9.4 fL (7.4-10.4); Platelet Count 307 10x3/uL (130-400); RBC Distribution Width 15.8 % (11.5-14.5); Red Blood Cell (RBC) Count 4.45 mill/uL (4.70-6.10)
[2024-08-28 05:04] LABS: Anion Gap 16 mmol/L (10-20); BUN (Urea Nitrogen) 33 mg/dL (8.4-25.7); Calc. Creatinine Clearance 112 mL/min (70-130); Calcium 8.9 mg/dL (7.8-10.44); Carbon Dioxide 26 mmol/L (23-31); Chloride 100 mmol/L (98-107); Estimated GFR 75; Glucose 207 mg/dL (80-115); Potassium 5.1 mmol/L (3.5-5.1); Sodium 137 mmol/L (136-145)
[2024-08-28] MEDS ORDERED: methylPREDNISolone Sod Succ 40 MG VIAL IVP SCH (09:00)
[2024-08-28] MEDS: methylPREDNISolone Sod Succ 40 MG VIAL IVP SCH (10:18)
[2024-08-28 16:06] VITALS: BP 138/83; TEMP 97.4
== END 2024-08-28 16:58 | disposition home or self-care (01) | DRG 291 ==
LOC: ERS 09:09 → OBS 13:41 → 2NO 17:00 → OBSVTOIN 08-26 13:45
PROVIDERS: ADMIT Hospitalist; ATTEND Hospitalist
DX: I11.0 Hypertensive heart disease with heart failure (principal); I50.23 Acute on chronic systolic (congestive) heart failure; J44.1 Chronic obstructive pulmonary disease with (acute) exacerbation; E78.5 Hyperlipidemia, unspecified; I48.91 Unspecified atrial fibrillation; I25.10 Atherosclerotic heart disease of native coronary artery without angina pectoris; F17.210 Nicotine dependence, cigarettes, uncomplicated; E11.9 Type 2 diabetes mellitus without complications; J44.9 Chronic obstructive pulmonary disease, unspecified; Z98.890 Other specified postprocedural states; Z95.5 Presence of coronary angioplasty implant and graft; I25.2 Old myocardial infarction; Z82.49 Family history of ischemic heart disease and other diseases of the circulatory system; Z71.6 Tobacco abuse counseling
CPT/HCPCS: 36415; 36416; 71045; 80048; 80053; 80306; 80307; 83690; 83735; 83880; 84484; 85025; 93005; 93010; 94640; 94664; 96365; 96375; 96376; 97139; G0378; J0456; J1815; J1940; J2919; J3475; J7050; J7620

== ENCOUNTER 2024-08-31 02:36 | Emergency (ER) | payer BC, SELFPAY ==
[2024-08-31] MEDS ORDERED: methylPREDNISolone Sod Succ/PF 125 MG/2 ML VIAL ONE (03:12)
[2024-08-31] MEDS ORDERED: Furosemide 40 MG (4 mL) VIAL ONE (03:12)
[2024-08-31] MEDS ORDERED: Ipratropium/Albuterol 3 ML NEB ONE (03:16)
[2024-08-31 04:12] LABS: #Basophils Less than 0.03 10x3/uL (0.0-0.2); %Basophils 0.1 % (0.0-1.0); %Eosinophils 1.8 % (0.0-10.0); %Lymphocytes 28.7 % (21.0-51.0); %Monocytes 10.5 % (0.0-10.0); %Neutrophils 58.2 % (42.0-75.0); Hematocrit 42.3 % (42.0-52.0); Hemoglobin 13.7 g/dL (14.0-18.0); Mean Corpuscular HGB CONC 32.4 g/dL (32.0-36.0); Mean Corpuscular Hemoglobin 29.5 pg (27.0-31.0); Mean Platelet Volume 9.4 fL (7.4-10.4); Platelet Count 286 10x3/uL (130-400); RBC Distribution Width 15.3 % (11.5-14.5); Red Blood Cell (RBC) Count 4.65 mill/uL (4.70-6.10)
[2024-08-31 04:25] LABS: ALT (SGPT) 33 U/L (8-55); AST (SGOT) 26 U/L (5-34); Albumin 3.2 g/dL (3.4-4.8); Alkaline Phosphatase 82 U/L (40-110); Anion Gap 12 mmol/L (10-20); BUN (Urea Nitrogen) 20 mg/dL (8.4-25.7); Bilirubin, Total 0.7 mg/dL (0.2-1.2); Calc. Creatinine Clearance 0 mL/min (70-130); Calcium 8.3 mg/dL (7.8-10.44); Carbon Dioxide 25 mmol/L (23-31); Chloride 104 mmol/L (98-107); Estimated GFR 102; Glucose 118 mg/dL (80-115); Potassium 4.7 mmol/L (3.5-5.1); Protein, Total 6.2 g/dL (5.8-8.1); Sodium 136 mmol/L (136-145)
[2024-08-31 04:38] LABS: Troponin I 0.041 ng/mL (< 0.028)
== END 2024-08-31 05:29 | disposition home or self-care (01) ==
LOC: ERS 02:36
DX: E11.621 Type 2 diabetes mellitus with foot ulcer (principal); L97.419 Non-pressure chronic ulcer of right heel and midfoot with unspecified severity; R06.02 Shortness of breath; I11.0 Hypertensive heart disease with heart failure; I50.20 Unspecified systolic (congestive) heart failure; I25.2 Old myocardial infarction; J44.9 Chronic obstructive pulmonary disease, unspecified; I25.10 Atherosclerotic heart disease of native coronary artery without angina pectoris; I48.91 Unspecified atrial fibrillation; F17.210 Nicotine dependence, cigarettes, uncomplicated
CPT/HCPCS: 71045; 80053; 83880; 84484; 85025; 93005; 94760; 96374; 96375; J1940; J2919; J7620

== ENCOUNTER 2025-08-30 10:52 | Emergency (ER) | payer SELFPAY ==
[2025-08-30 11:20] LABS: Hematocrit 48.9 % (42.0-52.0); Hemoglobin 15.5 g/dL (14.0-18.0); Mean Corpuscular Hemoglobin 29.0 pg (27.0-31.0); Mean Corpuscular Volume 91.4 fL (78.0-98.0); Platelet Count 261 10x3/uL (130-400); Red Blood Cell (RBC) Count 5.35 mill/uL (4.70-6.10); White Blood Cell (WBC) Count 13.00 10x3/uL (4.8-10.8)
[2025-08-30 11:34] LABS: ALT (SGPT) 19 U/L (Less than 45); AST (SGOT) 27 U/L (11-34); Albumin 4.1 g/dL (3.1-4.5); Alkaline Phosphatase 98 U/L (40-110); Anion Gap 16 mmol/L (10-20); BUN (Urea Nitrogen) 11 mg/dL (8.4-25.7); Bilirubin, Total 1.0 mg/dL (0.3-1.2); Calc. Creatinine Clearance 0 mL/min (70-130); Calcium 9.0 mg/dL (7.8-10.44); Carbon Dioxide 24 mmol/L (23-31); Chloride 102 mmol/L (98-107); Globulin 3.0 g/dL (2.4-3.5); Glucose 105 mg/dL (80-115); Potassium 3.6 mmol/L (3.5-5.1); Sodium 138 mmol/L (136-145)
[2025-08-30 11:43] LABS: Anisocytosis MARKED = >30 cells HPF (0-5); Macrocytosis MODERATE=16-30 cells HPF (0-5); Platelet Adequacy Comment Platelets Normal
[2025-08-30] MEDS ORDERED: cefTRIAXone (ROCEPHIN) 2 GM VIAL ONE (13:04)
== END 2025-08-30 13:26 | disposition home or self-care (01) ==
LOC: ERS 10:52
DX: L03.116 Cellulitis of left lower limb (principal); I11.0 Hypertensive heart disease with heart failure; I50.20 Unspecified systolic (congestive) heart failure; E11.9 Type 2 diabetes mellitus without complications; J44.9 Chronic obstructive pulmonary disease, unspecified; I25.2 Old myocardial infarction; I48.91 Unspecified atrial fibrillation; I25.10 Atherosclerotic heart disease of native coronary artery without angina pectoris; F17.210 Nicotine dependence, cigarettes, uncomplicated
CPT/HCPCS: 36415; 71045; 80053; 83605; 84484; 85025; 87040; 87086; 93005; 96365; J0696